=== PATIENT | female | born 1985 | race Caucasian/White ===

== ENCOUNTER 2018-04-15 14:50 | Emergency (ER) | payer OTHER ==
[~2018-04-15] VITALS: Ht 157.5 cm; Wt 54.4 kg
[~2018-04-15 14:50] MED LIST: BENTYL10 MG PO; CEPH500 PO; Cipro250 MG PO; FLUC150A PO; IBUP800 PO; IRON236 MG PO; Norco 5-325 Ta1 EACH PO; OXYACE5T PO; Zofran Odt8 MG PO
[2018-04-15 15:36] LABS: Source, Urine Clean Catch
[2018-04-15 15:38] LABS: Bilirubin, Urine Neg (Neg); Blood, Urine Neg (Neg); Glucose Qualitative, Urine Neg (Neg); Ketones, Urine Neg (Neg); Leukocyte Esterase, Urine Neg (Neg); Nitrite, Urine Neg (Neg); Protein, Urine Neg (Neg); Specific Gravity, Urine 1.025 (1.003-1.022); Urobilinogen, Urine NORM (Normal)
[2018-04-15 15:45] LABS: BASOPHILS ABSOLUTE AUTO 0.04 K/mm3 (0.00-0.23); BASOPHILS PERCENT AUTO 1 % (0-2); EOSINOPHILS ABSOLUTE AUTO 0.07 K/mm3 (0.00-0.68); EOSINOPHILS PERCENT AUTO 1 % (0-6); Hematocrit 39.7 % (33.0-51.0); Hemoglobin 13.2 g/dL (11.5-16.0); IMMATURE GRAN ABSOLUTE AUTO 0.02 K/mm3 (0.00-0.10); IMMATURE GRAN PERCENT AUTO 0 % (0-1); LYMPHOCYTES ABSOLUTE AUTO 2.21 K/mm3 (0.84-5.20); LYMPHOCYTES PERCENT AUTO 33 % (21-46); MONOCYTES ABSOLUTE AUTO 0.42 K/mm3 (0.16-1.47); MONOCYTES PERCENT AUTO 6 % (4-13); Mean Corpuscular HGB 31.1 pg (26.0-34.0); Mean Corpuscular HGB Conc 33.2 g/dL (31.5-36.5); Mean Corpuscular Volume 94 fL (80-100); Mean Platelet Volume 9.4 fL (9.1-12.4); NEUTROPHILS ABSOLUTE AUTO 3.89 K/mm3 (1.96-9.15); NEUTROPHILS PERCENT AUTO 59 % (41-73); Platelet Count 301 K/mm3 (150-400); RDW Coefficient Variation 12.4 % (11.7-14.2); RDW Standard Deviation 42.4 fL (35.1-46.3); Red Blood Cell Count 4.24 M/mm3 (3.80-5.20); White Blood Cell Count 6.65 K/mm3 (4.00-11.30)
[2018-04-15 15:46] LABS: Appearance, Urine Clear (Clear); Color, Urine Yellow (P-Yellow)
[2018-04-15 15:49] LABS: U Amphetamine Screen Not Detected; U Barbituate Screen Not Detected; U Benzodiazapine Screen Not Detected; U Buprenorphine Screen Not Detected; U Cannabinoids Screen Not Detected; U Cocaine Screen Not Detected; U Methadone Screen Not Detected; U Methamphetamine Screen Not Detected; U Opiates Screen Not Detected; U Oxycodone Screen Not Detected; U Phencyclidine Screen Not Detected; U Propoxyphene Screen Not Detected
[2018-04-15 16:13] LABS: Ethanol (Alcohol), Blood, Med <3 mg/dL; Salicylate <1.7 mg/dL (2.8-20.0)
[2018-04-15 16:23] LABS: Alanine Aminotransfer (ALT/SGP 25 U/L (12-78); Albumin/Globulin Ratio 1.2 (0.8-1.8); Alk Phos 66 U/L (50-136); Anion Gap 6 mmol/L (6-16); Aspartate Aminotrans (AST/SGOT 21 U/L (12-37); Bilirubin, Total 0.3 mg/dL (0.1-1.0); Blood Urea Nitrogen 21 mg/dL (8-24); Bun/Creatinine Ratio 29.2 (12.0-20.0); CO2, Blood 24 mmol/L (21-32); Calcium, Blood 8.5 mg/dL (8.5-10.1); Chloride, Blood 107 mmol/L (98-108); Creatinine, Blood 0.72 mg/dL (0.40-1.00); Globulin, Blood 3.2 g/dL (2.2-4.0); Glomerular Filtration Rate >60 (60-); Glucose, Blood 82 mg/dL (70-99); Potassium, Blood 4.1 mmol/L (3.5-5.5); Sodium, Blood 137 mmol/L (136-145); Total Protein, Blood 7.2 g/dL (6.4-8.2)
[2018-04-15 16:26] LABS: Acetaminophen, Random <2.0 ug/mL (10.0-30.0)
== END 2018-04-15 19:21 | disposition home or self-care (01) ==
LOC: ER 14:50
PROVIDERS: Physician Assistant
DX: F32.9 Major depressive disorder, single episode, unspecified (principal); Z88.0 Allergy status to penicillin; Z88.8 Allergy status to other drugs, medicaments and biological substances; Z79.899 Other long term (current) drug therapy
CPT/HCPCS: 36415; 80053; 81003; 81025; 84443; 85025; 99284; G0480

== ENCOUNTER 2021-07-25 02:50 | Day surgery (SDC) | payer OTHER ==
[~2021-07-25 02:50] MED LIST changes: +DESVENLAFAXINE100 M3 PO; +DOCU100 PO; +LORAZEPAM0.5 MG PO; +NOVAFERRUM125 MG/51 PO; +OMEP20ER PO; +QUETIAPINE FUM300 M1 PO; +QUETIAPINE FUMA25 MG PO; +VITAMIN D5000 UNIT PO
== END 2021-07-25 23:14 | disposition home or self-care (01) ==
LOC: WOUND 02:50
DX: T81.31XA Disruption of external operation (surgical) wound, not elsewhere classified, initial encounter (principal); S21.002A Unspecified open wound of left breast, initial encounter; Z88.8 Allergy status to other drugs, medicaments and biological substances; Y83.8 Other surgical procedures as the cause of abnormal reaction of the patient, or of later complication, without mention of misadventure at the time of the procedure
CPT/HCPCS: A9270; G0463

== ENCOUNTER 2021-07-27 01:10 | Day surgery (SDC) | payer OTHER | END 2021-07-27 23:00 | disposition home or self-care (01) | LOC: WOUND 01:10 | DX: T81.31XA Disruption of external operation (surgical) wound, not elsewhere classified, initial encounter (principal); S21.002A Unspecified open wound of left breast, initial encounter; Z88.8 Allergy status to other drugs, medicaments and biological substances; Y83.9 Surgical procedure, unspecified as the cause of abnormal reaction of the patient, or of later complication, without mention of misadventure at the time of the procedure | CPT/HCPCS: G0463 ==

== ENCOUNTER 2021-07-30 01:19 | Day surgery (SDC) | payer OTHER | END 2021-07-30 23:07 | disposition home or self-care (01) | LOC: WOUND 01:19 | DX: S21.002A Unspecified open wound of left breast, initial encounter (principal) | CPT/HCPCS: G0463 ==

== ENCOUNTER 2021-08-01 01:03 | Day surgery (SDC) | payer OTHER | END 2021-08-01 22:46 | disposition home or self-care (01) | LOC: WOUND 01:03 | DX: T81.31XA Disruption of external operation (surgical) wound, not elsewhere classified, initial encounter (principal); S21.002A Unspecified open wound of left breast, initial encounter | CPT/HCPCS: A9270 ==

== ENCOUNTER 2021-08-03 01:13 | Day surgery (SDC) | payer OTHER | END 2021-08-03 22:50 | disposition home or self-care (01) | LOC: WOUND 01:13 | DX: S21.002A Unspecified open wound of left breast, initial encounter (principal); X58.XXXA Exposure to other specified factors, initial encounter | CPT/HCPCS: G0463 ==

== ENCOUNTER 2021-08-06 01:36 | Day surgery (SDC) | payer OTHER | END 2021-08-06 22:55 | disposition home or self-care (01) | LOC: WOUND 01:36 | DX: S21.002A Unspecified open wound of left breast, initial encounter (principal) | CPT/HCPCS: G0463 ==

== ENCOUNTER 2021-08-08 00:44 | Day surgery (SDC) | payer OTHER | END 2021-08-08 22:50 | disposition home or self-care (01) | LOC: WOUND 00:44 | DX: T81.31XA Disruption of external operation (surgical) wound, not elsewhere classified, initial encounter (principal); S21.002A Unspecified open wound of left breast, initial encounter | CPT/HCPCS: A9270; G0463 ==

== ENCOUNTER 2021-08-10 00:30 | Day surgery (SDC) | payer OTHER | END 2021-08-10 22:57 | disposition home or self-care (01) | LOC: WOUND 00:30 | DX: S21.002A Unspecified open wound of left breast, initial encounter (principal); X58.XXXA Exposure to other specified factors, initial encounter | CPT/HCPCS: G0463 ==

== ENCOUNTER 2021-08-13 01:20 | Day surgery (SDC) | payer OTHER | END 2021-08-13 23:27 | disposition home or self-care (01) | LOC: WOUND 01:20 | DX: S21.002A Unspecified open wound of left breast, initial encounter (principal) | CPT/HCPCS: G0463 ==

== ENCOUNTER 2021-08-15 02:38 | Day surgery (SDC) | payer OTHER | END 2021-08-15 23:59 | disposition home or self-care (01) | LOC: WOUND 02:38 | DX: T81.31XA Disruption of external operation (surgical) wound, not elsewhere classified, initial encounter (principal); S21.002A Unspecified open wound of left breast, initial encounter; X58.XXXA Exposure to other specified factors, initial encounter | CPT/HCPCS: A9270 ==

== ENCOUNTER 2021-08-17 01:44 | Day surgery (SDC) | payer OTHER | END 2021-08-17 23:05 | disposition home or self-care (01) | LOC: WOUND 01:44 | DX: S21.002A Unspecified open wound of left breast, initial encounter (principal); X58.XXXA Exposure to other specified factors, initial encounter | CPT/HCPCS: G0463 ==

== ENCOUNTER 2021-08-20 01:28 | Day surgery (SDC) | payer OTHER | END 2021-08-21 23:19 | disposition home or self-care (01) | LOC: WOUND 01:28 | DX: S21.002A Unspecified open wound of left breast, initial encounter (principal); X58.XXXA Exposure to other specified factors, initial encounter | CPT/HCPCS: G0463 ==

== ENCOUNTER 2021-08-22 08:31 | Day surgery (SDC) | payer OTHER | END 2021-08-22 22:57 | disposition home or self-care (01) | LOC: WOUND 08:31 | DX: T81.31XA Disruption of external operation (surgical) wound, not elsewhere classified, initial encounter (principal); Y83.8 Other surgical procedures as the cause of abnormal reaction of the patient, or of later complication, without mention of misadventure at the time of the procedure; S21.002A Unspecified open wound of left breast, initial encounter; X58.XXXA Exposure to other specified factors, initial encounter | CPT/HCPCS: A9270 ==

== ENCOUNTER 2021-08-24 01:15 | Day surgery (SDC) | payer OTHER | END 2021-08-24 23:25 | disposition home or self-care (01) | LOC: WOUND 01:15 | DX: S21.002A Unspecified open wound of left breast, initial encounter (principal) | CPT/HCPCS: G0463 ==

== ENCOUNTER 2021-08-27 03:21 | Day surgery (SDC) | payer OTHER | END 2021-08-27 23:23 | disposition home or self-care (01) | LOC: WOUND 03:21 | DX: S21.002D Unspecified open wound of left breast, subsequent encounter (principal) | CPT/HCPCS: A9270; G0463 ==

== ENCOUNTER 2021-08-29 01:42 | Day surgery (SDC) | payer OTHER | END 2021-08-29 23:26 | disposition home or self-care (01) | LOC: WOUND 01:42 | DX: T81.31XA Disruption of external operation (surgical) wound, not elsewhere classified, initial encounter (principal) | CPT/HCPCS: A9270; G0463 ==

== ENCOUNTER 2021-08-31 05:32 | Day surgery (SDC) | payer OTHER | END 2021-08-31 23:06 | disposition home or self-care (01) | LOC: WOUND 05:32 | DX: S21.002A Unspecified open wound of left breast, initial encounter (principal); X58.XXXA Exposure to other specified factors, initial encounter | CPT/HCPCS: G0463 ==

== ENCOUNTER 2021-09-07 03:40 | Day surgery (SDC) | payer OTHER | END 2021-09-07 23:20 | disposition home or self-care (01) | LOC: WOUND 03:40 | DX: S21.002D Unspecified open wound of left breast, subsequent encounter (principal); X58.XXXD Exposure to other specified factors, subsequent encounter | CPT/HCPCS: G0463 ==

== ENCOUNTER 2021-09-10 01:04 | Day surgery (SDC) | payer OTHER | END 2021-09-10 23:25 | disposition home or self-care (01) | LOC: WOUND 01:04 | DX: S21.002D Unspecified open wound of left breast, subsequent encounter (principal); X58.XXXD Exposure to other specified factors, subsequent encounter | CPT/HCPCS: G0463 ==

== ENCOUNTER → 2021-09-12 | Day surgery (SDC) | payer OTHER | LOC: WOUND 02:10 | DX: T81.31XA Disruption of external operation (surgical) wound, not elsewhere classified, initial encounter (principal); Y83.8 Other surgical procedures as the cause of abnormal reaction of the patient, or of later complication, without mention of misadventure at the time of the procedure | CPT/HCPCS: A9270; G0463 ==

== ENCOUNTER 2021-09-14 08:00 | Day surgery (SDC) | payer OTHER | END 2021-09-14 23:59 | disposition home or self-care (01) | LOC: WOUND 08:00 | DX: S21.002A Unspecified open wound of left breast, initial encounter (principal); X58.XXXA Exposure to other specified factors, initial encounter | CPT/HCPCS: G0463 ==

== ENCOUNTER 2021-09-17 00:39 | Day surgery (SDC) | payer OTHER | END 2021-09-17 23:45 | disposition home or self-care (01) | LOC: WOUND 00:39 | DX: T81.31XA Disruption of external operation (surgical) wound, not elsewhere classified, initial encounter (principal); S21.002A Unspecified open wound of left breast, initial encounter; X58.XXXA Exposure to other specified factors, initial encounter | CPT/HCPCS: A9270; G0463 ==

== ENCOUNTER 2021-09-26 00:42 | Day surgery (SDC) | payer OTHER | END 2021-09-26 22:49 | disposition home or self-care (01) | LOC: WOUND 00:42 | DX: S21.002D Unspecified open wound of left breast, subsequent encounter (principal); X58.XXXD Exposure to other specified factors, subsequent encounter | CPT/HCPCS: A9270; G0463 ==

== ENCOUNTER 2022-02-20 09:42 | Day surgery (SDC) | payer OTHER ==
[~2022-02-20] VITALS: Ht 157.5 cm; Wt 65.2 kg
[2022-02-20] MEDS ORDERED: BUSP5 PO (10:22)
--- NOTE | 2022-02-20 11:33 | NUR ---
02/20/22 1133 Laurel Samuel ROPIVACAINE 0.5% 30MLS MIXED W/ EPI 0.15 MLS (1MG/ML) PER ORDER TO MAKE ROPIVACAINE 0.5% 1:200,000 FOR INJECTION AT INCISION SITE BY DR KLINE. MED MIXED & VERIFIED BY TWO RNS. MANAGEMENT AWARE.
--- NOTE | 2022-02-20 12:23 | NUR ---
02/20/22 1223 Ewa Porter PT STATES 5/10 TOLERABLE CRAMPING. PT INSTRUCTED TO NOTIFY NURSE IF SHE DESIRES PAIN MEDICATION. WILL REASSESS AND MONITOR. [facility]DXO IS GOING OVER DISCHARGE INSTRUCTIONS WITH THE PT AND HER MOTHER.
== END 2022-02-20 12:37 | disposition home or self-care (01) ==
LOC: ORSCSDS 09:42
PROVIDERS: Obstetrics & Gynecology
PROC: 0U5F4ZZ Destruction of Cul-de-sac, Percutaneous Endoscopic Approach (ICD-10-PCS; principal; 2022-02-20 11:00)
PROC: 0U514ZZ Destruction of Left Ovary, Percutaneous Endoscopic Approach (ICD-10-PCS; principal; 2022-02-20 11:00)
DX: R10.2 Pelvic and perineal pain (principal); N80.329 Endometriosis of the posterior cul-de-sac, unspecified depth; N83.202 Unspecified ovarian cyst, left side; F41.9 Anxiety disorder, unspecified; Z79.899 Other long term (current) drug therapy
CPT/HCPCS: J0171; J1956; J2250; J2704; J2710; J2795; J3010; J7120

== ENCOUNTER 2022-02-25 22:20 | Emergency (ER) | payer OTHER ==
[~2022-02-25] VITALS: Ht 160 cm; Wt 63.5 kg
[~2022-02-25 22:20] MED LIST changes: +BUSP5 PO
[2022-02-25 23:03] LABS: BASOPHILS ABSOLUTE AUTO 0.03 K/mm3 (0.00-0.23); BASOPHILS PERCENT AUTO 0 % (0-2); EOSINOPHILS ABSOLUTE AUTO 0.08 K/mm3 (0.00-0.68); EOSINOPHILS PERCENT AUTO 1 % (0-6); Hematocrit 40.2 % (33.0-51.0); Hemoglobin 13.5 g/dL (11.5-16.0); IMMATURE GRAN ABSOLUTE AUTO 0.03 K/mm3 (0.00-0.10); IMMATURE GRAN PERCENT AUTO 0 % (0-1); LYMPHOCYTES ABSOLUTE AUTO 2.43 K/mm3 (0.84-5.20); LYMPHOCYTES PERCENT AUTO 36 % (21-46); MONOCYTES ABSOLUTE AUTO 0.44 K/mm3 (0.16-1.47); MONOCYTES PERCENT AUTO 7 % (4-13); Mean Corpuscular HGB 30.8 pg (26.0-34.0); Mean Corpuscular HGB Conc 33.6 g/dL (31.5-36.5); Mean Corpuscular Volume 92 fL (80-100); Mean Platelet Volume 9.9 fL (9.1-12.4); NEUTROPHILS ABSOLUTE AUTO 3.68 K/mm3 (1.96-9.15); NEUTROPHILS PERCENT AUTO 55 % (41-73); Platelet Count 232 K/mm3 (150-400); RDW Standard Deviation 40.8 fL (35.1-46.3); Red Blood Cell Count 4.39 M/mm3 (3.80-5.20); White Blood Cell Count 6.69 K/mm3 (4.00-11.30)
[2022-02-25 23:41] LABS: Albumin, Blood 3.6 g/dL (3.4-5.0); Bilirubin, Total 0.3 mg/dL (0.1-1.0); Bun/Creatinine Ratio 24.5 (12.0-20.0); Calcium, Blood 8.7 mg/dL (8.5-10.1); Creatinine, Blood 0.73 mg/dL (0.40-1.00); Globulin, Blood 3.5 g/dL (2.2-4.0); Potassium, Blood 3.7 mmol/L (3.5-5.5); Total Protein, Blood 7.1 g/dL (6.4-8.2)
== END 2022-02-26 06:12 | disposition home or self-care (01) ==
LOC: ER 22:20
PROVIDERS: Student in an Organized Health Care Education/Training Program
DX: G89.18 Other acute postprocedural pain (principal); N93.9 Abnormal uterine and vaginal bleeding, unspecified; Z88.8 Allergy status to other drugs, medicaments and biological substances; Z79.899 Other long term (current) drug therapy
CPT/HCPCS: 36415; 74177; 80053; 85025; J2405; Q9967